=== PATIENT | female | born 1970 | race Caucasian/White ===

== ENCOUNTER 2023-04-29 18:05 | Emergency (ER) | payer SELFPAY ==
[2023-04-29 18:09] VITALS: BP 121/74; PULSE 82; RESP 18; TEMP 36.9; O2SAT 96; BMI 25.1
--- NOTE | 2023-04-29 18:16 | W.ED.HA ---
HPI - Headache General: Chief Complaint: Headache Stated Complaint: congestion Time Seen by Provider: 04/29/23 18:15 History of Present Illness: Is a 52-year-old female comes in today for complaints of sinus pressure, headache, cough and shortness of breath. Patient appears nontoxic. Patient is a prior smoker. Patient denies any chronic medical problems. Patient is also concerned about exposure to scabies. Associated symptoms: Reports rash; Deny chest pain or vomiting Review of Systems General: Reports: 10 or more systems reviewed and unremarkable except in HPI and below ENMT: Reports: nasal congestion Card: Denies: chest pain Resp: Reports: dyspnea and productive cough GI: Denies: vomiting Skin/Breast: Reports: rash and pruritus Physical Exam Const: COMMON NORMALS: alert HENMT: COMMON NORMALS: normocephalic HEAD & SCALP: normocephalic NOSE: Nasal discharge present purulent MOUTH: Normal oral and palatal mucosa present THROAT: posterior oropharynx abnormal erythema Neck/C-Spine: COMMON NORMALS: full ROM Resp: COMMON NORMALS: normal respiratory effort AUSCULTATION: wheezes Cardio: COMMON NORMALS: regular rate and regular rhythm RATE: regular rate RHYTHM: regular rhythm GI: COMMON NORMALS: non-tender Extremity: COMMON NORMALS: normal to inspection Neuro: SENSORIUM/ORIENTATION: Yes alert Skin: NARRATIVE SKIN EXAM: Crusted lesion to the right wrist. Patient had a recent bout of scabies and is concerned that it may be returning. Course Vital Signs: Vital signs: Vital Signs Temperature 98.5 F 04/29/23 18:09 Pulse Rate 82 04/29/23 18:09 Respiratory Rate 18 04/29/23 18:09 Blood Pressure 121/74 04/29/23 18:09 Pulse Oximetry 96 04/29/23 18:09 Oxygen Delivery Me thod Room Air 04/29/23 18:09 MDM - Headache Medical Decision Making 52-year-old female comes in today for complaints of cough and congestion, sinus headache, body aches. Patient appears nontoxic. Lungs have some inspiratory wheezes. Abdomen soft nontender. No edema is noted in extremities. Vital signs are normal. Differential diagnosis includes viral syndrome, upper respiratory infection, rhinosinusitis, pneumonia, bronchitis, scabies, neurodermatitis. We will treat patient with doxycycline and albuterol. Patient was given 1 dose of dexamethasone. Patient will be continue with permethrin and recommended to use 2 more doses for coverage of scabies. Patient reported understanding of care plan and need for follow-up or return to the ER. Discharge Plan Discharge Patient Disposition: Home Clinical Impression: Acute bacterial rhinosinusitis, Exposure to scabies Acute bronchitis Qualifiers: Bronchitis organism: unspecified organism Qualified Code(s): J20.9 - Acute bronchitis, unspecified Condition: Stable Prescriptions: New doxycycline monohydrate 100 mg capsule 100 mg PO BID 10 Days Qty: 20 0RF permethrin 5 % cream 1 applic topical Q14D Qty: 120 1RF Rx Instructions: apply second treatment 14 days after first treatment if live lice remain Discharge Orders: Discharge ED (Routine); Ordered 04/29/23 Ordered By: Bronson Witt Referrals: Laura Cummings MD [Primary Care Provider] - Discharge Diet: Usual diet Discharge Activity: Increase activity as tolerated Patient Instructions: Acute Bronchitis (ED) Activity Restrictions/Additional Instructions: Drink plenty of fluids. Take doxycycline 100 mg twice a day for next 10 days. Use albuterol inhaler 2 puffs every 4 hours as needed for shortness of breath or increased wheezing. Follow-up with primary care in 3 to 5 days for recheck. Return to ED for new concerns. Coding Level of Care Code ED Certified Medical Assistant for Jonnie Mcnamara
[2023-04-29] MEDS: doxycycline 100 mg Tablet PO (18:34)
[2023-04-29] MEDS: dexamethasone 10 mg/mL INJ IM (18:34)
[2023-04-29] MEDS: albuterol 8 gm MDI 2 PUFF INHALATION (18:39)
[2023-04-29 18:47] VITALS: PULSE 77; RESP 18; O2SAT 97
== END 2023-04-29 18:54 | disposition home or self-care (01) ==
PROVIDERS: Emergency Provider Nurse Practitioner Family; PCP Family Medicine
DX: J20.9 Acute bronchitis, unspecified (principal); J01.90 Acute sinusitis, unspecified; B96.89 Other specified bacterial agents as the cause of diseases classified elsewhere; Z20.7 Contact with and (suspected) exposure to pediculosis, acariasis and other infestations
CPT/HCPCS: 94640; 96372; 99284; J1100; J3535

== ENCOUNTER 2023-05-05 15:49 | Emergency (ER) | payer SELFPAY ==
[2023-05-05 15:55] VITALS: BP 133/75; PULSE 86; RESP 18; TEMP 36.8; O2SAT 96
--- NOTE | 2023-05-05 16:37 | W.ED.SOB ---
HPI - SOB/Dyspnea General: Chief Complaint: Shortness of Breath/Dyspnea Stated Complaint: SOB Time Seen by Provider: 05/05/23 16:37 Source: patient Mode of arrival: ambulatory Limitations: no limitations History of Present Illness: HPI Narrative: This 52-year-old female presents to the ER complaining of scabies on her hands and shortness of breath. She was seen here on 04/29 (6 days ago). At that time, she was given an inhaler and a prescription for permethrin for scabies. She states that she went to nursing home shortly after leaving the ER. However, she got out of nursing home 3 days ago. Since then, she has not used her inhaler which she has an alcohol. She can find a prescription for the permethrin. Here in the ER, oxygen saturation is normal on room air. Patient appears somewhat anxious. She wants another prescription for permethrin. She has no cough, chest pain, vomiting or GI symptoms. Associated symptoms: Deny chest pain or lightheadedness Review of Systems Const: Denies: chills, body aches or change in appetite Eyes: Denies: change in vision or eye discharge ENMT: Denies: throat pain, dental pain or nasal discharge Card: Denies: chest pain or lightheadedness Resp: Reports: dyspnea : Denies: dysuria Musc: Denies: neck pain or back pain Skin/Breast: Reports: rash (on the hands) Neuro: Denies: headache(s) or weakness in extremities Psych: Denies: depression Maxi/Lymph: Denies: easy bruising All/Imm: Denies: urticaria, tongue swelling or facial swelling Physical Exam Const: COMMON NORMALS: no acute distress, patient oriented x3, no limitations and alert HENMT: COMMON NORMALS: normocephalic HEAD & SCALP: normocephalic Eye: COMMON NORMALS: EOMs intact bilaterally Neck/C-Spine: COMMON NORMALS: full ROM and supple Chest: COMMONS NORMALS: normal inspection of the chest Resp: COMMON NORMALS: normal respiratory effort, No retractions, No use of accessory muscles and clear to auscultation bilaterally AUSCULTATION: clear to auscultation bilaterally Cardio: COMMON NORMALS: regular rate, regular rhythm and No murmurs present (Cardio) RATE: regular rate RHYTHM: regular rhythm GI: COMMON NORMALS: Normal to inspection, nondistended, normoactive bowel sounds present and non-tender : COMMON NORMALS: Yes no CVA tenderness BLADDER/KIDNEY EXAM: Yes no CVA tenderness Back/Pelvis: COMMON NORMALS: no CVA tenderness and no thoracic nor lumbar tenderness Extremity: GENERAL: Yes normal exam except as noted Neuro: COMMON NORMALS: patient oriented x3 and no focal motor deficits SENSORIUM/ORIENTATION: Yes alert Psych: COMMON NORMALS: mental status grossly normal and cooperative Skin: OTHER: 2 mildly erythematous papules on the dorsum of the right hand and 1 on the dorsum of the left hand. Course Vital Signs: Vital signs: Vital Signs Temperature 98.2 F 05/05/23 15:55 Pulse Rate 84 05/05/23 18:14 Respiratory Rate 18 05/05/23 15:55 Blood Pressure 146/85 05/05/23 18:14 Pulse Oximetry 96 05/05/23 18:14 Oxygen Delivery Me thod Room Air 05/05/23 15:55 MDM - SOB/Dyspnea Medical Decision Making Medical decision making: History as above. There are subtle changes in the chest x-ray which radiologist notes is suspicious for subtle pneumonia. Patient will be given Levaquin. There is no indication to admit her given that she ia afebrile and has normal oxygen saturation on room air. She was advised to continue using the albuterol she already has. Reasons to return were discussed. Lab Data 05/05/23 17:25 05/05/23 17:25 Labs/Radiology: Radiology Impressions Chest X-Ray 05/05/23 16:54 IMPRESSION: Findings suspicious for subtle pneumonia in the medial left lung base. Laboratory Results WBC 11.7 10^3/uL (4.0-10.0) H 05/05/23 17:25 RBC 3.40 10^6/uL (4.1-5.3) L 05/05/23 17:25 Hgb 10.6 g/dL (11.5-15.3) L 05/05/23 17:25 Hct 32.8 % (37.0-47.0) L 05/05/23 17:25 MCV 96.5 fl (81-99) 05/05/23 17:25 MCH 31.2 pg (28.0-34.0) 05/05/23 17:25 MCHC 32.3 g/dL (30.0-36.0) 05/05/23 17:25 RDW 13.1 % (12.1-15.1) 05/05/23 17:25 Plt Count 233 10^3/cmm (130-400) 05/05/23 17:25 MPV 9.4 fL (7.4-10.4) 05/05/23 17:25 Neut % (Auto) 80.3 % 05/05/23 17:25 Lymph % (Auto) 11.6 % 05/05/23 17:25 [place] % (Auto) 5.7 % 05/05/23 17:25 Eos % (Auto) 1.7 % 05/05/23 17:25 Baso % (Auto) 0.3 % 05/05/23 17:25 Neut # (Auto) 9.38 10^3/uL (1.8-7.7) H 05/05/23 17:25 Lymph # (Auto) 1.4 10^3/uL (0.8-4.8) 05/05/23 17:25 [place] # (Auto) 0.7 10^3/uL (0.2-0.9) 05/05/23 17:25 Eos # (Auto) 0.2 10^3/uL (0.0-0.8) 05/05/23 17:25 Baso # (Auto) 0.0 10^3/uL (0.0-0.1) 05/05/23 17:25 Nucleated RBC % (auto) 0 % 05/05/23 17:25 Nucleated RBCs # 0.0 /100WBC 05/05/23 17:25 Sodium 141 mmol/L (136-145) 05/05/23 17:25 Potassium 3.6 mmol/L (3.5-5.1) 05/05/23 17:25 Chloride 110 mmol/L (98-107) H 05/05/23 17:25 Carbon Dioxide 23 mmol/L (22-29) 05/05/23 17:25 Anion Gap 11.6 (5-19) 05/05/23 17:25 BUN 11 mg/dL (6-20) 05/05/23 17:25 Creatinine 0.3 mg/dL (0.5-0.9) L 05/05/23 17:25 GFR Calculation 231.8 mL/min (90-130) H 05/05/23 17:25 Glucose 94 mg/dL (65-115) 05/05/23 17:25 Calculated Osmolality 291 mOsm/kg (285-295) 05/05/23 17:25 Calcium 7.8 mg/dL (8.5-10.5) L 05/05/23 17:25 Total Bilirubin 0.2 mg/dL (0.15-1.2) 05/05/23 17:25 AST 28 U/L (0-32) 05/05/23 17:25 ALT 35 U/L (0-33) H 05/05/23 17:25 Alkaline Phosphatase 110 U/L (35-105) H 05/05/23 17:25 Total Protein 5.3 g/dL (6.6-8.7) L 05/05/23 17:25 Albumin 2.2 g/dL (3.5-5.2) L 05/05/23 17:25 Globulin 3.1 g/dL (1.3-4.6) 05/05/23 17:25 Discharge Plan Discharge Patient Disposition: Home Clinical Impression: Community acquired pneumonia Condition: Stable Prescriptions: New permethrin 5 % cream 1 applic topical Q14D Qty: 60 0RF Rx Instructions: apply second treatment 14 days after first treatment if live lice remain levofloxacin 750 mg tablet 750 mg PO DAILY 7 Days Qty: 7 0RF Discontinued doxycycline monohydrate 100 mg capsule 100 mg PO BID 10 Days Qty: 20 0RF No Action permethrin 5 % cream 1 applic topical Q14D Qty: 120 1RF Rx Instructions: apply second treatment 14 days after first treatment if live lice remain Discharge Orders: Discharge ED (Routine); Ordered 05/05/23 Ordered By: Nisha Angelo Referrals: Laura Cummings MD [Primary Care Provider] - Discharge Diet: Usual diet Discharge Activity: Resume usual activity Patient Instructions: Opioid Safety, Pain Management Activity Restrictions/Additional Instructions: Take Levaquin as prescribed. Stop taking doxycycline. Use the albuterol that you already have at home for shortness of breath. Apply the permethrin cream as advised. Return with new or worsening symptoms. Coding Level of Care Code ED Wildlife Science Professor for Jonnie Mcnamara
[2023-05-05 16:52] VITALS: BP 156/90; PULSE 104; O2SAT 95
--- NOTE | 2023-05-05 16:54 | XRR_ITS ---
PROCEDURE INFORMATION: Exam: XR Chest Exam date and time: 05/05/2023 5:01 PM Age: 52 years old Clinical indication: Cough; Additional info: Shortness of breath TECHNIQUE: Imaging protocol: Radiologic exam of the chest. Views: 1 view. COMPARISON: CR XR chest 1V [id number] 04/27/2019 4:46 PM FINDINGS: Lungs: Subtle airspace opacity suspected in the medial left lung base. The right lung is clear. Pleural spaces: Unremarkable. No pleural effusion. No pneumothorax. Heart/Mediastinum: Unremarkable. No cardiomegaly. Bones/joints: Old right rib fractures. No acute fracture visualized. XR/XR chest 1V portable [id number] IMPRESSION: Findings suspicious for subtle pneumonia in the medial left lung base.
[2023-05-05 17:35] LABS: Basophils % 0.3 %; Eosinophils # 0.2 10^3/uL (0.0-0.8); Eosinophils % 1.7 %; Hematocrit 32.8 % (37.0-47.0); Hemoglobin 10.6 g/dL (11.5-15.3); Lymphocytes # 1.4 10^3/uL (0.8-4.8); Lymphocytes % 11.6 %; Mean Corpuscular HGB Conc 32.3 g/dL (30.0-36.0); Mean Corpuscular Hemoglobin 31.2 pg (28.0-34.0); Mean Corpuscular Volume 96.5 fl (81-99); Mean Platelet Volume 9.4 fL (7.4-10.4); Monocytes # 0.7 10^3/uL (0.2-0.9); Monocytes % 5.7 %; Neutrophils # 9.38 10^3/uL (1.8-7.7); Neutrophils % 80.3 %; Nucleated Red Blood Cells % 0 %; Platelet Count 233 10^3/cmm (130-400); Red Cell Distribution Width 13.1 % (12.1-15.1); White Blood Count 11.7 10^3/uL (4.0-10.0)
[2023-05-05 17:38] VITALS: BP 126/74; PULSE 89; O2SAT 94
[2023-05-05 18:07] LABS: Alanine Aminotransferase 35 U/L (0-33); Albumin Level 2.2 g/dL (3.5-5.2); Alkaline Phosphatase 110 U/L (35-105); Anion Gap 11.6 (5-19); Aspartate Amino Transferase 28 U/L (0-32); Blood Urea Nitrogen 11 mg/dL (6-20); Calcium 7.8 mg/dL (8.5-10.5); Carbon Dioxide 23 mmol/L (22-29); Chloride 110 mmol/L (98-107); Globulin 3.1 g/dL (1.3-4.6); Glomerular Filtration Rate 231.8 mL/min (90-130); Glucose 94 mg/dL (65-115); Osmolality Calculated 291 mOsm/kg (285-295); Potassium 3.6 mmol/L (3.5-5.1); Sodium 141 mmol/L (136-145); Total Bilirubin 0.2 mg/dL (0.15-1.2); Total Protein 5.3 g/dL (6.6-8.7)
[2023-05-05 18:14] VITALS: BP 146/85; PULSE 84; O2SAT 96
[2023-05-05 18:29] VITALS: BP 146/85; PULSE 84; O2SAT 96
== END 2023-05-05 18:29 | disposition home or self-care (01) ==
PROVIDERS: Emergency Provider Family Medicine; PCP Family Medicine
DX: J18.9 Pneumonia, unspecified organism (principal)
CPT/HCPCS: 36415; 71045; 80053; 85025; 99284

== ENCOUNTER 2024-04-08 12:28 | Emergency (ER) | payer SELFPAY ==
[2024-04-08 13:03] VITALS: BP 155/78; PULSE 92; RESP 16; TEMP 36.8; O2SAT 94
--- NOTE | 2024-04-08 13:46 | W.ED.DIZZY ---
HPI - Dizziness General: Chief Complaint: Dizziness Stated Complaint: dizzy Time Seen by Provider: 04/08/24 13:45 History of Present Illness: HPI Narrative: 53-year-old female comes in today with complaints of dizziness. Patient reports for the last 2 weeks when she changes positions at times she will feel really dizzy with the room spinning. Patient appears nontoxic. Patient appears in no acute distress. Patient denies any chronic medical problems except possibly high blood pressure, diabetes, and cirrhosis. Patient used to drink alcohol routinely but has stopped 1 to 2 years ago. Patient does continue to use nicotine through vaping. Patient denies any THC. Patient reports no routine medicine. Review of Systems General: Reports: 10 or more systems reviewed and unremarkable except in HPI and below Physical Exam Const: COMMON NORMALS: alert HENMT: COMMON NORMALS: normocephalic HEAD & SCALP: normocephalic Neck/C-Spine: COMMON NORMALS: full ROM Resp: COMMON NORMALS: normal respiratory effort and clear to auscultation bilaterally AUSCULTATION: clear to auscultation bilaterally Cardio: COMMON NORMALS: regular rate and regular rhythm RATE: regular rate RHYTHM: regular rhythm GI: COMMON NORMALS: Soft to palpation PALPATION: Yes Soft to palpation Back/Pelvis: COMMON NORMALS: thoracic and lumbar spine normal to inspection Extremity: NARRATIVE EXTREMITY EXAM: Bilateral lower leg swelling Neuro: SENSORIUM/ORIENTATION: Yes alert Skin: COMMON NORMALS: turgor normal GENERAL SKIN EXAM: turgor normal Course Vital Signs: Vital signs: Vital Signs Temperature 98.2 F 04/08/24 13:03 Pulse Rate 92 04/08/24 13:03 Respiratory Rate 16 04/08/24 13:03 Blood Pressure 155/78 04/08/24 13:03 Pulse Oximetry 94 04/08/24 13:03 Oxygen Delivery Me thod Room Air 04/08/24 13:03 MDM - Dizziness Medical Decision Making 53-year-old female comes in today for complaints of dizziness on and off for the last 2 weeks. Patient denies any falls or injuries. Patient reports no chronic medical conditions but has been told that she may have cirrhosis, diabetes, and high blood pressure. Patient does not routinely go to the physician. Patient has previously been a routine alcohol and nicotine user. Patient does report that she continues to use nicotine through vaping. Patient does not use THC or methamphetamines. Lungs are clear to auscultation. Patient does have some mild edema to the lower extremities. Vital signs no elevated blood pressure. Differential diagnosis includes orthostatic hypotension, benign positional vertigo, hypertension, anemia, anxiety. Patient refused labs and imaging as she needed to go to a another appointment. It was noted that patient's blood pressure was between 155 and 170 in the emergency department. I believe patient most likely has some uncontrolled hypertension which is mainly to her dizzy spells. Patient reports no headache or chest pain or shortness of breath. Lungs are clear to auscultation. Recommended that we start patient on hydrochlorothiazide for her blood pressure and discussed lifestyle changes. Case management was requested to have patient with primary care follow-up. Patient reported understanding and agreed to plan. No radiology studies performed this visit Discharge Plan Discharge Patient Disposition: Home Clinical Impression: Hypertension Qualifiers: Hypertension type: unspecified Qualified Code(s): I10 - Essential (primary) hypertension Condition: Stable Prescriptions: New hydrochlorothiazide 12.5 mg tablet 12.5 mg PO DAILY Qty: 30 0RF No Action sulfamethoxazole-trimethoprim [Bactrim DS] 800-160 mg tablet 1 tab PO BID 7 Days Qty: 14 0RF prednisone 20 mg tablet 60 mg PO DAILY 5 Days Qty: 15 0RF Discharge Orders: Discharge ED (Routine); Ordered 04/08/24 Ordered By: Bronson Witt Referrals: Laura Cummings MD [Primary Care Provider] - Discharge Diet: Usual diet Discharge Activity: Increase activity as tolerated Patient Instructions: DASH Eating Plan (ED), Hypertension (ED) Activity Restrictions/Additional Instructions: Use medication as directed. This is to help lower your blood pressure which will help control your dizzy spells. You need to follow-up with primary care in 1 week for recheck of blood pressure and further management. Return to ER for worsening symptoms such as severe headache, chest pain, or shortness of breath. Coding Level of Care Code ED Asbestos Cloth Inspector for Jonnie Mcnamara
[2024-04-08 14:04] VITALS: BP 170/92; BP 179/105; BP 180/109; PULSE 81; PULSE 85; PULSE 88
--- NOTE | 2024-04-08 14:05 | ECG_ITS ---
[facility] Test Date: 2024-04-08 Pat Name: Aylin Perrin Department: Room: Gender: Female Complaint Evaluation Officer: : 1970 Requested By: Bronson Cunningham Order Number: [id number] Giovanni MD: Christoph Jaffe M.D. Measurements Intervals Pray Rate: 79 P: 75 [place]: 142 QRS: -6 QRSD: 91 T: 82 QT: 415 QTc: 478 Interpretive Statements SINUS RHYTHM SEPTAL MYOCARDIAL INFARCTION , PROBABLY OLD [40+ ms Q WAVE IN V1/V2] Compared to ECG 04/27/2019 17:11:55 Myocardial infarct finding now present Sinus tachycardia no longer present Electronically Signed On 04-09-2024 0:07:03 CDT by Christoph Jaffe M.D. [id number]
[2024-04-08 14:30] VITALS: BP 178/99; PULSE 84; RESP 16; O2SAT 99
--- NOTE | 2024-04-12 10:15 | DCPLANNER ---
referral printed from er visit 04/08. no phone number given to f/u with
== END 2024-04-08 14:31 | disposition home or self-care (01) ==
PROVIDERS: Emergency Provider Nurse Practitioner Family; PCP Family Medicine
DX: I10 Essential (primary) hypertension (principal)
CPT/HCPCS: 93005; 99283